=== PATIENT | male | born 1975 | race Hispanic/Latino ===

== ENCOUNTER 2018-08-20 06:56 | Emergency (ER) | payer MEDICAID ==
[2018-08-20 07:27] VITALS: BMI 25.0
[2018-08-20 07:49] VITALS: BP 142/93; PULSE 81; RESP 17; TEMP 98.1; O2SAT 98
--- NOTE | 2018-08-20 07:55 | C.PDOC ---
History Of Present Illness 43 y/o male with a PMHx of bipolar disorder(?) and depression(?), brought in by police requesting to be evaluated because he is feeling suicidal. States he is in a "bad place" and needs to be admitted. Patient reports he wants to jump off a bridge, and that he has tried harming himself in the past by using heroin. Of note patient was just discharged from [facility] ED at 7:00 am after being cleared by their crisis team. He denies any chest pain, SOB, headache, fever, or chills. Time Seen by Provider: 08/20/18 07:14 Chief Complaint (Nursing): Psychiatric Evaluation History Per: Patient History/Exam Limitations: no limitations Onset/Duration Of Symptoms: Days Current Symptoms Are (Timing): Still Present Suicide/Self Injury Attempted (Context): None Associated Symptoms: Suicidal Thoughts, Suicidal Plan Involuntary Hold By: Local Law Enforcement Past Medical History Reviewed: Historical Data, Nursing Documentation, Vital Signs Vital Signs: Last Vital Signs Temp 98.1 F 08/20/18 07:47 Pulse 81 08/20/18 07:47 Resp 17 08/20/18 07:47 BP 142/93 H 08/20/18 07:47 Pulse Ox 98 08/20/18 07:47 - Medical History PMH: Anxiety, Bipolar Disorder, Depression Denies: Diabetes, Hepatitis, HIV, HTN, Seizures, Sexually Transmitted Disease Family History: States: Unknown Family Hx - Social History Hx Tobacco Use: Yes Hx Alcohol Use: Yes Hx Substance Use: Yes Review Of Systems Constitutional: Negative for: Fever Cardiovascular: Negative for: Chest Pain Respiratory: Negative for: Cough, Shortness of Breath Gastrointestinal: Negative for: Vomiting, Abdominal Pain Neurological: Negative for: Weakness, Dizziness Psych: Positive for: Depression, Suicidal ideation (with plan to jump off bridge). Negative for: Other (homicidal ideation) Physical Exam - Physical Exam Appears: Non-toxic, No Acute Distress, Other (Easily agitatable, otherwise cooperative) Skin: Warm, Dry, No Rash Head: Atraumatic, Normacephalic Eye(s): bilateral: Normal Inspection, PERRL, EOMI Oral Mucosa: Moist Neck: Normal ROM Chest: Symmetrical Cardiovascular: Rhythm Regular, No Murmur Respiratory: Normal Breath Sounds, No Accessory Muscle Use Gastrointestinal/Abdominal: Soft, No Tenderness, No Distention Extremity: Bilateral: Atraumatic, Normal Color And Temperature Pulses: Left Dorsalis Pedis: Normal, Right Dorsalis Pedis: Normal Neurological/Psych: Oriented x3, Normal Cranial Nerves ED Course And Treatment - Laboratory Results Result Diagrams: 08/20/18 07:48 08/20/18 07:48 O2 Sat by Pulse Oximetry: 98 (RA) Pulse Ox Interpretation: Normal Medical Decision Making Medical Decision Making: Impression: Suicidal Ideation Initial Plan: - Labs ordered - Pending crisis evaluation 8:25 Patient was seen by crisis and cleared for discharge. I evaluated the patient again, who has become very uncooperative, aggressive, and is refusing to give information. Case was discussed w/ Dr. Burk directly, who agrees that patient is inappropriate for involuntary psychiatric setting. Plan is to discharge patient. Disposition Discussed With : Anil Burk Counseled Patient/Family Regarding: Diagnosis, Need For Followup - Disposition Disposition: HOME/ ROUTINE Disposition Time: 08:29 Condition: GUARDED Forms: General Discharge Instructions - POA Present On Arrival: None - Clinical Impression Clinical Impression: Aggressive behavior - Scribe Statement The provider has reviewed the documentation as recorded by the Luis Eduardo Gomes Provider Attestation: All medical record entries made by the Luis Eduardo were at my direction and personally dictated by me. I have reviewed the chart and agree that the record accurately reflects my personal performance of the history, physical exam, medical decision making, and the department course for this patient. I have also personally directed, reviewed, and agree with the discharge instructions and disposition.
[2018-08-20 07:58] LABS: BASO % 0.8 % (0.0-2.0); EOS # 0.5 K/uL (0.0-0.7); EOS % 9.4 % (0.0-4.0); LYMPH % 34.6 % (20.0-40.0); MEAN CELL VOLUME 93.7 fL (80.0-94.0); MEAN CORPUSCULAR HEMOGLOBIN 31.4 pg (27.0-31.0); MEAN CORPUSCULAR HGB CONC 33.5 g/dL (33.0-37.0); MONO # 0.5 K/uL (0.0-0.8); MONO % 9.6 % (0.0-10.0); NEUT # 2.6 K/uL (1.8-7.0); NEUT % 45.6 % (50.0-75.0); NRBC % 0.1 % (0.0-2.0); RBC 4.76 Mil/uL (4.40-5.90); RED CELL DISTRIBUTION WIDTH 13.5 % (11.5-14.5); WHITE BLOOD COUNT 5.7 K/uL (4.8-10.8)
[2018-08-20 08:15] LABS: ALB/GLOB RATIO 1.5 (1.0-2.1); ALBUMIN 4.6 g/dL (3.5-5.0); ALT/SGPT 49 U/L (21-72); AST/SGOT 49 U/L (17-59); BLOOD UREA NITROGEN 16 mg/dL (9-20); CALCIUM 9.8 mg/dl (8.6-10.4); GFR NON-AFRICAN AMERICAN > 60
[2018-08-20 08:36] LABS: BARBITURATES, UR NEGATIVE (NEGATIVE); BENZODIAZEPINES, UR NEGATIVE (NEGATIVE); OPIATES, UR NEGATIVE (NEGATIVE); PHENCYCLIDINE, UR NEGATIVE (NEGATIVE); SQUAMOUS EPITHIAL < 1 /hpf (0-5); URINE BILIRUBIN NEGATIVE (NEGATIVE); URINE BLOOD NEGATIVE (NEGATIVE); URINE CLARITY Clear (Clear); URINE COLOR Yellow (YELLOW); URINE GLUCOSE (UA) NORMAL (Normal); URINE LEUKOCYTE ESTERASE NEG Leu/uL (Negative); URINE PROTEIN NEGATIVE (NEGATIVE)
== END 2018-08-20 08:43 | disposition home or self-care (01) ==
LOC: C.ER 06:56
DX: R46.89 Other symptoms and signs involving appearance and behavior (principal)